=== PATIENT | female | born 1955 | race Asian ===

== ENCOUNTER 2016-11-28 13:31 | Day surgery (SDC) | payer BC ==
[~2016-11-28] VITALS: Ht 152.4 cm; Wt 56.3 kg
[~2016-11-28 13:31] MED LIST: AMLO-145
[2016-11-28] MEDS ORDERED: METF500T4 PO (14:23)
[2016-11-28] MEDS ORDERED: LISI2.5T59 PO (14:23)
[2016-11-28] MEDS ORDERED: PRAV10TA43 PO (14:23)
[2016-11-28 14:27] VITALS: Ht 152.4 cm; Wt 56.3 kg
[2016-11-28 15:16] VITALS: BP 148/67; PULSE 43; RESP 14
[2016-11-28] MEDS ORDERED: PROPOFOL 40 ML ONE (15:24)
[2016-11-28] MEDS ORDERED: LIDOCAINE 2% (SDV) 5 ML INJ ONE (15:24)
--- NOTE | 2016-11-28 15:55 | OPPN ---
Date/Time of Note Date/Time of Note DATE: 11/28/16 TIME: 15:51 Proc Note GI Procedure Date 11/28/16 Pre-procedure Diagnosis * Colorectal cancer screening Post-procedure Diagnosis Impression: * Normal colonoscopy to cecum * Small internal and external hemorrhoids Plan: Follow up as scheduled] High fiber diet Annual hemoccult stool testing [Screening colonoscopy in 10 years] Procedure Performed: Colonoscopy Surgeon JOE SIMENTAL MD Egg Breaking Machine Operator none Tourniquet Time none EBL none Transfusion required none Biopsy 1: None Grafts/Implants none Tubes/Drains none Complication(s) none Pt Condition post procedure: stable Disposition: home Indications: screening/surveillance Procedure Description After informed consent, with the patient/relatives understanding the procedure, its indications and potential risks and complications, including but not limited to: Allergic reaction, bleeding, perforation, infection, and after all pertinent questions were answered to the patient's satisfaction, the patient/ relatives signed the witnessed informed consent. Following this, premedication was administered slowly IV push under careful cardiovascular and respiratory monitoring with pulse [employer], automatic blood pressure, and monitor technician. Once the sedative effect was achieved, the patient was placed in the left lateral decubitus position, digital rectal examination was performed. The colonoscope was then introduced and advanced under visual control throughout all segments of the colon including: the rectum, sigmoid, descending colon, splenic flexure, transverse colon, hepatic flexure, ascending colon and finally reaching the cecum which was clearly identified by transillumination, finger indentation and the ileocecal valve. Careful examination of the mucosa of the lower gastrointestinal tract both on insertion as well as withdrawal of the instrument disclosed the following findings: PREPARATION QUALITY: [Adequate], RECTAL EXAM: The anorectal area was visualized examined and digital rectal examination performed with the following findings: There is small external hemorrhoids present. Otherwise no evidence of perirectal disease, no masses. COLONIC MUCOSA: The mucosa of all segments of the colon was carefully examined and showed the following findings: the examined mucosa appears within normal limits. There is no evidence of inflammatory changes, diverticular formation, polyps or other neoplasms, vascular malformation, or any other abnormality. Small internal hemorrhoids present. The instrument was then withdrawn, the patient tolerated the procedure well and was transferred out of the Endoscopy Suite awake and in good condition to continue recovery under observation. Copies To: CC: JOE SIMENTAL MD, MORDO MD Nov 28, 2016 15:55
[2016-11-28 16:14] VITALS: BP 142/69; PULSE 48; RESP 14
== END 2016-11-28 16:24 | disposition home or self-care (01) ==
LOC: GIL 13:31
PROVIDERS: ATTEND Internal Medicine Gastroenterology
DX: Z12.11 Encounter for screening for malignant neoplasm of colon (principal); K64.8 Other hemorrhoids; K64.4 Residual hemorrhoidal skin tags
CPT/HCPCS: 45378; 82962; Z7610